=== PATIENT | male | born 2000 | race Caucasian/White ===

== ENCOUNTER 2019-06-20 17:42 | Emergency (ER) | payer BC ==
[2019-06-20 20:09] VITALS: BP 109/66
--- NOTE | 2019-06-20 20:15 | ED ---
Head Injury - HPI Summary HPI Summary: 19 year old M presenting to [facility] accompanied by father complains of difficulty articulating his speech since 2.5 weeks ago. Patient states that 3 weeks ago, he fell while hiking and hit the right side of his head on the ground with no associated LOC or headache. Patient states he had to get stitches in his right ear after falling. Patient states that 4-5 days after his fall, he noticed that he had difficulty with his "s" and "th" sounds. 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 Patient states that the difficulty articulating his speech has been improving but not completely improved. The patient rates the pain 0/10 in severity. Symptoms aggravated by nothing. Symptoms alleviated by nothing. - History Of Current Complaint Chief Complaint: EDHeadInjury Stated Complaint: HEAD INJURY PER PT Time Seen by Provider: 06/20/19 19:53 Hx Obtained From: Patient Mechanism Of Injury: Other - fall on to the right side of his face while hiking Onset/Duration: Started Weeks Ago, Still Present Severity Currently: None Pain Intensity: 0 Pain Scale Used: 0-10 Numeric Aggravating Factor(s): Other: - Nothing Alleviating Factor(s): Other: - Nothing - Allergies/Home Medications Allergies/Adverse Reactions: Allergies Allergy/AdvReac Type Severity Reaction Status Date / Time No Known Allergies Allergy Verified 06/20/19 20:07 Home Medications: Home Medications NK [No Home Medications Reported] 06/20/19 [History Confirmed 06/20/19] PMH/Surg Hx/FS Hx/Imm Hx Endocrine/Hematology History: Denies: Hx Diabetes Cardiovascular History: Denies: Hx Hypertension - Surgical History Surgery Procedure, Year, and Place: none Infectious Disease History: No Infectious Disease History: Denies: Traveled Outside the [place] in Last 30 Days - Family History Known Family History: Negative: Blood Disorder - Social History Alcohol Use: None Hx Substance Use: No Substance Use Type: Reports: None Hx Tobacco Use: No Smoking Status (MU): Never Smoked Tobacco Review of Systems Negative: Fever Neurological: Other - difficulty articulating speech All Other Systems Reviewed And Are Negative: Yes Physical Exam - Summary Physical Exam Summary: Appearance: The patient is well-nourished in no acute distress and in no acute pain. Skin: The skin is warm and dry, and skin color reflects adequate perfusion. HEENT: The head is normocephalic and atraumatic. The pupils are equal and reactive. The conjunctivae are clear and without drainage. Nares are patent and without drainage. Mouth reveals moist mucous membranes, and the throat is without erythema and exudate. The external ears are intact. The ear canals are patent and without drainage. The tympanic membranes are intact. Neck: The neck is supple with full range of motion and non-tender. There are no carotid bruits. There is no neck vein distension. Respiratory: Chest is non-tender. Lungs are clear to auscultation and breath sounds are symmetrical and equal. Cardiovascular: Heart is regular rate and rhythm. There is no murmur or rub auscultated. There is no peripheral edema and pulses are symmetrical and equal. Abdomen: The abdomen is soft and non-tender. There are normal bowel sounds heard in all four quadrants and there is no organomegaly palpated. Musculoskeletal: There is no back tenderness noted. Extremities are non-tender with full range of motion. There is good capillary refill. There is no peripheral edema or calf tenderness elicited. Neurological: Patient is alert and oriented to person, place and time. The patient has symmetrical motor strength in all four extremities. Cranial nerves are grossly intact. Deep tendon reflexes are symmetrical and equal in all four extremities. Psychiatric: The patient has an appropriate affect and does not exhibit any anxiety or depression. GCS: 15 Triage Information Reviewed: Yes Vital Signs On Initial Exam: Initial Vitals Temp Pulse Resp BP Pulse Ox 99.2 F 90 16 120/86 96 06/20/19 17:52 06/20/19 17:52 06/20/19 17:52 06/20/19 17:52 06/20/19 17:52 Vital Signs Reviewed: Yes Diagnostics - Vital Signs Vital Signs Temp Pulse Resp BP Pulse Ox 06/20/19 20:08 98.4 F 62 16 109/66 99 06/20/19 17:52 99.2 F 90 16 120/86 96 - Laboratory Lab Statement: Any lab studies that have been ordered have been reviewed, and results considered in the medical decision making process. - CT CT Brain CT Interpretation Completed By: Radiologist Summary of CT Findings: No acute intracranial abnormality. ED physician has reviewed this report. Head Injury Course/Dx Course Of Treatment: Mr. Wright fell about 3 weeks ago and hit the right side of his face on the ground. He had a cut on his ear which she had repaired at the [facility]. He did note a little bit of pain to his jaw on the right but minimized. For a few days he felt that his speech was off but that has now improved. He was singing lesson and his instructor felt that the right side of his face did not move his well. A CT scan of his brain was obtained prior to my seeing him. On his exam I could not note any increased movement on the right side of his face. He denied any change in his taste sensation. It's conceivable that he could've had trauma to his right facial nerve. He seems to have improved. I'm not sure how that would explain his speech problem but could explain the facial movement issue. At any rate he is improving at this point and I recommended follow-up with [facility] where they may consider further testing. - Diagnoses Provider Diagnoses: Head injury Discharge ED - Sign-Out/Discharge Documenting (check all that apply): Patient Departure - Discharge Patient Received Moderate/Deep Sedation with Procedure: No - Discharge Plan Condition: Stable Disposition: HOME Patient Education Materials: Head Injury (ED) Referrals: [facility] [Outside] - 2 Days Additional Instructions: Follow up with [facility] in the next 2-3 days. Return to the Emergency Department for new or worsening symptoms. - Billing Disposition and Condition Condition: STABLE Disposition: Home - Attestation Statements Document Initiated by Adeline: Yes Documenting Scribe: Mi Parr Provider For Whom Adeline is Documenting (Include Credential): Negro Ortega MD Scribe Attestation: IMi, scribed for Negro Ortega MD on 06/20/19 at 2055. Scribe Documentation Reviewed: Yes Provider Attestation: The documentation as recorded by the Mi gage accurately reflects the service I personally performed and the decisions made by me, Negro Ortega MD Status of Scribe Document: Viewed
== END 2019-06-20 20:22 | disposition home or self-care (01) ==
LOC: ED 17:42
DX: S09.90XA Unspecified injury of head, initial encounter (principal); W18.30XA Fall on same level, unspecified, initial encounter; Y93.01 Activity, walking, marching and hiking; Y92.838 Other recreation area as the place of occurrence of the external cause; R47.9 Unspecified speech disturbances
CPT/HCPCS: 70450; 99282